=== PATIENT | female | born 1985 | race Caucasian/White ===

== ENCOUNTER 2019-06-26 18:38 | Emergency (ER) | payer BC ==
[2019-06-26 19:30] LABS: Urine Blood NEGATIVE (NEG); Urine Glucose NEGATIVE (NEG); Urine Protein NEGATIVE (NEG); Urine Specific Gravity 1.015 (1.005-1.030); Urine pH 6.5 (5.0-7.0)
[2019-06-26 19:52] LABS: Absolute Lymphocytes (CBC) 2.8 K/uL (0.7-4.9); Basophils % 0.1 % (0-1.3); Hematocrit 34.6 % (36.0-45.0); Lymphocytes % 24.4 % (15.3-44.8); MPV 8.5 fL (7.6-11.3); RBC Red Blood Cell Count 3.94 M/uL (3.86-4.86)
[2019-06-26 20:00] LABS: Potassium 3.6 mmol/L (3.5-5.1)
--- NOTE | 2019-06-26 20:12 | ER ---
Nurse's Notes [facility] Name: Dorothy Ledesma Age: 34 yrs Sex: Female : 1985 Arrival Date: 06/26/2019 Time: 18:42 Bed 17 Private MD: Diagnosis: 9 weeks gestation of ;Threatened Presentation: 06/26 18:51 Presenting complaint: Patient states: "I'm spotting, I'm 10 weeks and 3 days , aj1 I've been on clomid, I had a miscarriage on April 15. I called the nurse special education professor for Dr. Alva and she told me to come in" Patient reports that she has had cramping throughout her , but has had no new abdominal pain. Transition of care: patient was not received from another setting of care. Onset of symptoms was June 26, 2019. Risk Assessment: Do you want to hurt yourself or someone else? Patient reports no desire to harm self or others. Initial Sepsis Screen: Does the patient meet any 2 criteria? No. Patient's initial sepsis screen is negative. Does the patient have a suspected source of infection? No. Patient's initial sepsis screen is negative. Care prior to arrival: None. 18:51 Method Of Arrival: Ambulatory aj1 18:51 Acuity: KATHY 3 aj1 Triage Assessment: 18:54 General: Appears in no apparent distress. comfortable, Behavior is calm, cooperative, aj1 appropriate for age. Pain: Pain currently is 2 out of 10 on a pain scale. Neuro: Level of Consciousness is awake, alert, obeys commands. Cardiovascular: Patient's skin is warm and dry. Respiratory: Airway is patent Respiratory effort is even, unlabored, Respiratory pattern is regular, symmetrical. : Reports vaginal bleeding that is spotty. 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 - Social history:: Smoking status: Patient/guardian denies using tobacco. - Ebola Screening: : Patient denies travel to an Ebola-affected area in the 21 days before illness onset. Screenin:05 Abuse screen: Denies threats or abuse. Denies injuries from another. Nutritional cc3 screening: No deficits noted. Tuberculosis screening: No symptoms or risk factors identified. Fall Risk Ambulatory Aid- None/Bed Rest/Nurse Assist (0 pts). Gait- Normal/Bed Rest/Wheelchair (0 pts) Mental Status- Oriented to own ability (0 pts). Assessment: 19:05 Obstetrical Assessment: General assessment: awake and alert, Patient reports minimal cc3 vaginal spotting that started today. General: Appears in no apparent distress. comfortable, Behavior is calm, cooperative, appropriate for age. Pain: Denies pain. Neuro: Level of Consciousness is awake, alert, obeys commands, Oriented to person, place, time, situation, Appropriate for age. Cardiovascular: Denies chest pain, Heart tones S1 S2 present Capillary refill < 3 seconds in bilateral fingers Patient's skin is warm and dry. Respiratory: Airway is patent Respiratory effort is even, unlabored, Respiratory pattern is regular, symmetrical, Breath sounds are clear bilaterally. GI: Abdomen is round Bowel sounds present X 4 quads. Abd is soft and non tender X 4 quads. : No signs and/or symptoms were reported regarding the genitourinary system. EENT: No signs and/or symptoms were reported regarding the EENT system. Derm: Skin is intact, is healthy with good turgor, Skin is pink, warm \\T\\ dry. normal. Musculoskeletal: Circulation, motion, and sensation intact. Range of motion: intact in all extremities. 19:59 Reassessment: Ultrasound done bedside by the human resources technician, awaiting result. cc3 20:20 Reassessment: Patient appears in no apparent distress at this time. Patient and/or cc3 family updated on plan of care and expected duration. Pain level reassessed. Patient is alert, oriented x 3, equal unlabored respirations, skin warm/dry/pink. CADEN Bustillos discharged the patient home, no prescription given. IV cannula removed and patient left ER vitally stable and ambulatory with her mother. No valuables left in the patient's room. Patient denies pain at this time. Patient states feeling better. Patient states symptoms have improved. Vital Signs: 18:54 BP 138 / 74; Pulse 73; Resp 18; Temp 98.4; Pulse Ox 97% on R/A; Weight 83.01 kg (R); aj1 Height 5 ft. 9 in. (175.26 cm) (R); Pain 2/10; 19:30 BP 116 / 63; Pulse 65; Resp 16 S; Pulse Ox 99% on R/A; cc3 20:11 BP 124 / 63; Pulse 71; Resp 17 S; Pulse Ox 100% on R/A; Pain 0/10; cc3 18:54 Body Mass Index 27.02 (83.01 kg, 175.26 cm) aj1 ED Course: 18:42 Patient arrived in ED. mr 18:52 Triage completed. aj1 18:54 Arm band placed on Patient placed in an exam room. aj1 18:55 Henny Bustillos FNP-C is PHCP. kb 18:55 Daniele Corrales MD is Attending Physician. kb 19:03 Selena Moore is Primary Nurse. cc3 19:05 Patient has correct armband on for positive identification. Placed in gown. Bed in low cc3 position. Call light in reach. Side rails up X2. Pulse ox on. NIBP on. 19:15 Inserted saline lock: 20 gauge in left antecubital area, using aseptic technique. Blood cc3 collected. 20:03 US Transvaginal Ob In Process Unspecified. EDMS 20:04 Ultrasound completed. Patient tolerated well. Notified DIRECTOR INDUSTRIAL/PA henny. sg3 20:20 No provider procedures requiring assistance completed. IV discontinued, intact, cc3 bleeding controlled, No redness/swelling at site. Pressure dressing applied. 20:20 No provider procedures requiring assistance completed. cc3 Administered Medications: No medications were administered Outcome: 20:11 Discharge ordered by . kb 20:20 Discharged to home ambulatory, with family. cc3 20:20 Condition: stable 20:20 Discharge instructions given to patient, family, Instructed on discharge instructions, follow up and referral plans. Demonstrated understanding of instructions, follow-up care. 20:24 Patient left the ED. cc3 Signatures: Dispatcher [employer] EDUT Henny Bustillos FNP-C FNP-Ckb Johnson, Angela, RN RN aj1 Bee Manuel mr Taryn Galarza sg3 Selena Moore cc3
--- NOTE | 2019-06-26 20:12 | EDPHYS ---
Physician Documentation [facility] Name: Dorothy Ledesma Age: 34 yrs Sex: Female : 1985 Arrival Date: 06/26/2019 Time: 18:42 Bed 17 Private MD: ED Physician Daniele Corrales HPI: 06/26 19:39 This 34 yrs old Female presents to ER via Ambulatory with complaints of kb Vaginal Bleeding, + Preg <12wks. 19:39 The patient presents to the emergency department with vaginal bleeding, described as kb spotting. The estimated gestational age is 10 weeks. course: care: private OB physician, Dr. Alva, Leakage of Fluid: none appreciated, Ultrasound: the patient had an ultrasound, which was normal, Risk/complications: no obvious risks or complications are appreciated. Previous pregnancies: in previous pregnancies patient has had. Associated signs and symptoms: Pertinent positives: vaginal bleeding. The patient has not experienced similar symptoms in the past. The patient has been recently seen by a physician:. 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 States Dr Alva's nurse told her to come to the ER. Had normal US on Thursday. States this is her second round of clomid to conceive and she miscarried the first time. . 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 - Social history:: Smoking status: Patient/guardian denies using tobacco. - Ebola Screening: : Patient denies travel to an Ebola-affected area in the 21 days before illness onset. ROS: 19:38 Constitutional: Negative for fever, chills, and weight loss, ENT: Negative for injury, kb pain, and discharge, Neck: Negative for injury, pain, and swelling, Cardiovascular: Negative for chest pain, palpitations, and edema, Respiratory: Negative for shortness of breath, cough, wheezing, and pleuritic chest pain, Back: Negative for injury and pain, MS/Extremity: Negative for injury and deformity, Skin: Negative for injury, rash, and discoloration, Neuro: Negative for headache, weakness, numbness, tingling, and seizure. 19:38 Abdomen/GI: Positive for abdominal cramps. 19:38 : Positive for vaginal bleeding. Exam: 19:38 Constitutional: This is a well developed, well nourished patient who is awake, alert, kb and in no acute distress. Head/Face: Normocephalic, atraumatic. ENT: Nares patent. No nasal discharge, no septal abnormalities noted. Tympanic membranes are normal and external auditory canals are clear. Oropharynx with no redness, swelling, or masses, exudates, or evidence of obstruction, uvula midline. Mucous membranes moist. Neck: Trachea midline, no thyromegaly or masses palpated, and no cervical lymphadenopathy. Supple, full range of motion without nuchal rigidity, or vertebral point tenderness. No Meningismus. Chest/axilla: Normal chest wall appearance and motion. Nontender with no deformity. No lesions are appreciated. Cardiovascular: Regular rate and rhythm with a normal S1 and S2. No gallops, murmurs, or rubs. Normal PMI, no JVD. No pulse deficits. Respiratory: Lungs have equal breath sounds bilaterally, clear to auscultation and percussion. No rales, rhonchi or wheezes noted. No increased work of breathing, no retractions or nasal flaring. Abdomen/GI: Soft, non-tender, with normal bowel sounds. No distension or tympany. No guarding or rebound. No evidence of tenderness throughout. Back: No spinal tenderness. No costovertebral tenderness. Full range of motion. Skin: Warm, dry with normal turgor. Normal color with no rashes, no lesions, and no evidence of cellulitis. MS/ Extremity: Pulses equal, no cyanosis. Neurovascular intact. Full, normal range of motion. Neuro: Awake and alert, GCS 15, oriented to person, place, time, and situation. Cranial nerves II-XII grossly intact. Motor strength 5/5 in all extremities. Sensory grossly intact. Cerebellar exam normal. Normal gait. Vital Signs: 18:54 BP 138 / 74; Pulse 73; Resp 18; Temp 98.4; Pulse Ox 97% on R/A; Weight 83.01 kg (R); aj1 Height 5 ft. 9 in. (175.26 cm) (R); Pain 2/10; 19:30 BP 116 / 63; Pulse 65; Resp 16 S; Pulse Ox 99% on R/A; cc3 20:11 BP 124 / 63; Pulse 71; Resp 17 S; Pulse Ox 100% on R/A; Pain 0/10; cc3 18:54 Body Mass Index 27.02 (83.01 kg, 175.26 cm) aj1 MDM: 18:56 Patient medically screened. kb 19:38 Data reviewed: vital signs, nurses notes. Data interpreted: Pulse oximetry: on room air kb is 97 %. Interpretation: normal. 20:10 Counseling: I had a detailed discussion with the patient and/or guardian regarding: the kb historical points, exam findings, and any diagnostic results supporting the discharge/admit diagnosis, lab results, radiology results, the need for outpatient follow up, an OB/Gyne specialist, to return to the emergency department if symptoms worsen or persist or if there are any questions or concerns that arise at home. 06/26 18:55 Order name: Quantitative Hcg; Complete Time: 20:02 kb 06/26 18:55 Order name: Abo/rh Typing; Complete Time: 19:53 kb 06/26 18:55 Order name: Basic Metabolic Panel; Complete Time: 20:02 kb 06/26 18:55 Order name: CBC with Diff; Complete Time: 19:55 kb 06/26 19:28 Order name: Urine Dipstick--Ancillary (enter results); Complete Time: 19:35 mw2 06/26 19:28 Order name: Urine --Ancillary (enter results); Complete Time: 19:35 mw2 06/26 18:55 Order name: Urine Test (obtain specimen); Complete Time: 19:26 kb 06/26 18:55 Order name: IV Saline Lock; Complete Time: 19:19 kb 06/26 18:55 Order name: Labs collected and sent; Complete Time: 19:19 kb 06/26 18:55 Order name: NPO; Complete Time: 19:26 kb 06/26 18:55 Order name: Urine Dipstick-Ancillary (obtain specimen); Complete Time: 19:26 kb 06/26 19:05 Order name: US Transvaginal Ob; Complete Time: 20:24 kb Administered Medications: No medications were administered Disposition: 06/27 07:13 Co-signature as Attending Physician, Daniele Corrales MD. rn Disposition: 06/26/19 20:11 Discharged to Home. Impression: 9 weeks gestation of , Threatened . - Condition is Stable. - Discharge Instructions: Vaginal Bleeding During , First Trimester, First Trimester of , [id number], Subchorionic Hematoma, Threatened Miscarriage, [id number], Pelvic Rest. - Medication Reconciliation Form, Thank You Letter, Antibiotic Education, Prescription Opioid Use, Work release form form. - Follow up: Emergency Department; When: As needed; Reason: Worsening of condition. Follow up: Private Physician; When: 2 - 3 days; Reason: Recheck today's complaints, Continuance of care, Re-evaluation by your physician. Signatures: Dispatcher [employer] EDNY Henny Bustillos, FANTASMA-C HIGH SCHOOL COORDINATOR-Ckb Deyanira Valero RN RN aj1 Daniele Corrales MD MD rn Cordel, Charlene cc3 Corrections: (The following items were deleted from the chart) 06/26 20:24 20:11 06/26/2019 20:11 Discharged to Home. Impression: 9 weeks gestation of ; cc3 Threatened . Condition is Stable. Forms are Medication Reconciliation Form, Thank You Letter, Antibiotic Education, Prescription Opioid Use. Follow up: Emergency Department; When: As needed; Reason: Worsening of condition. Follow up: Private Physician; When: 2 - 3 days; Reason: Recheck today's complaints, Continuance of care, Re-evaluation by your physician. kb
--- NOTE | 2019-06-26 20:17 | RAD REPORT ---
EXAM DESCRIPTION: US - Transvaginal OB - 06/26/2019 8:03 pm CLINICAL HISTORY: VAGINAL BLEEDING COMPARISON: <Comparisons> FINDINGS: A single gestational sac is seen within the uterus. The shape of the sac is within normal limits for gestational age. Within the sac is a single pole with crown-rump length of 2.9 cm, c orrelating to estimated gestational age of 9 weeks 3 days. Estimated date of delivery is 01/26/2020. Heart rate is 167 BPM. 15 x 6 mm inferiorly located subchorionic bleed noted. The placenta is not yet developed due to early gestational age. The maternal adnexa and ovaries are within normal limits. Normal Doppler blood flow was demonstrated to both ovaries. IMPRESSION: Single live early intrauterine gestation with estimated gestational age of 9 weeks 3 day s, PAZ 01/26/2020. 15 x 6 mm inferiorly located subchorionic bleed.
[2019-06-26 20:32] VITALS: TEMP 98.4
[2019-06-26 20:34] VITALS: BP 124/63; O2SAT 100
== END 2019-06-26 20:24 | disposition home or self-care (01) ==
LOC: ER 18:38
DX: O20.0 Threatened abortion (principal); O99.341 Other mental disorders complicating pregnancy, first trimester; F41.8 Other specified anxiety disorders; Z79.82 Long term (current) use of aspirin; Z3A.09 9 weeks gestation of pregnancy
CPT/HCPCS: 36415; 76817; 80048; 81003; 81025; 84702; 85025; 86900; 86901; 99284

== ENCOUNTER 2019-07-31 12:24 | Emergency (ER) | payer BC ==
[2019-07-31 13:38] LABS: Urine Blood 2+ (NEG); Urine Glucose NEGATIVE (NEG); Urine Protein NEGATIVE (NEG); Urine Specific Gravity 1.015 (1.005-1.030); Urine pH 6.5 (5.0-7.0)
--- NOTE | 2019-07-31 14:07 | ER ---
Nurse's Notes [facility] Name: Dorothy Ledesma Age: 34 yrs Sex: Female : 1985 Arrival Date: 07/31/2019 Time: 12:25 Bed 13 Private MD: Tom Alva B Diagnosis: 15 weeks gestation of Presentation: 07/31 12:33 Presenting complaint: Patient states: "I'm 15 weeks , I was here a few weeks aj1 ago, I have a subchorionic hematoma, I was spotting the last time I was here, I'm spotting again today." Denies pain. Transition of care: patient was not received from another setting of care. Onset of symptoms was July 31, 2019. Risk Assessment: Do you want to hurt yourself or someone else? Patient reports no desire to harm self or others. Initial Sepsis Screen: Does the patient meet any 2 criteria? No. Patient's initial sepsis screen is negative. Does the patient have a suspected source of infection? No. Patient's initial sepsis screen is negative. Care prior to arrival: None. 12:33 Method Of Arrival: Ambulatory aj1 12:33 Acuity: KATHY 3 aj1 Triage Assessment: 12:38 General: Appears in no apparent distress. comfortable, Behavior is calm, cooperative, aj1 appropriate for age. Pain: Denies pain. Neuro: Level of Consciousness is awake, alert, obeys commands. Cardiovascular: Patient's skin is warm and dry. Respiratory: Airway is patent Respiratory effort is even, unlabored, Respiratory pattern is regular, symmetrical. : Reports vaginal bleeding that is spotty. 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 - Social history:: Smoking status: Patient/guardian denies using tobacco. - Ebola Screening: : Patient denies travel to an Ebola-affected area in the 21 days before illness onset. Screenin:39 Abuse screen: Denies threats or abuse. Nutritional screening: No deficits noted. rb1 Tuberculosis screening: No symptoms or risk factors identified. Fall Risk None identified. Assessment: 12:39 General: Appears in no apparent distress. comfortable, Behavior is calm, cooperative, rb1 Denies fever. Pain: Denies pain. Neuro: Level of Consciousness is awake, alert, obeys commands, Oriented to person, place, time, situation. Cardiovascular: Capillary refill < 3 seconds is brisk in bilateral fingers. Respiratory: Airway is patent Respiratory effort is even, unlabored, Respiratory pattern is regular, symmetrical. GI: No signs and/or symptoms were reported involving the gastrointestinal system. : Reports vaginal bleeding that is spotty. Derm: Skin is pink, warm \\T\\ dry. 13:38 Reassessment: Patient appears in no apparent distress at this time. No changes from rb1 previously documented assessment. Vital Signs: 12:38 BP 130 / 76; Pulse 66; Resp 18; Temp 97.5; Pulse Ox 100% on R/A; Weight 83.91 kg (R); aj1 Height 5 ft. 9 in. (175.26 cm) (R); Pain 0/10; 13:38 BP 103 / 57; Pulse 56; Resp 19; Pulse Ox 100% on R/A; rb1 12:38 Body Mass Index 27.32 (83.91 kg, 175.26 cm) aj1 13:38 Pt. was having her US done. rb1 ED Course: 12:25 Patient arrived in ED. as 12:25 Tom Alva MD is Private Physician. as 12:35 Triage completed. aj1 12:38 Arm band placed on Patient placed in an exam room. aj1 12:39 Henny Bustillos FNP-C is [facility]. kb 12:39 Patient has correct armband on for positive identification. Bed in low position. Call rb1 light in reach. Side rails up X 1. Pulse ox on. NIBP on. Warm blanket given. 12:40 Edinson Riley MD is Attending Physician. kb 12:49 Rajwinder Dewitt, RN is Primary Nurse. rb1 14:04 Ultrasound completed. Patient tolerated well. Notified SLICING MACHINE OPERATOR/PA henny. sg3 14:07 Tom Alva MD is Referral Physician. kb 14:08 US OB Limited In Process Unspecified. EDMS 14:19 No provider procedures requiring assistance completed. IV discontinued, intact, aj1 bleeding controlled, No redness/swelling at site. Pressure dressing applied. Administered Medications: No medications were administered Outcome: 14:07 Discharge ordered by MD. kb 14:19 Discharged to home ambulatory. aj1 14:19 Condition: good 14:19 Discharge instructions given to patient, Instructed on discharge instructions, follow up and referral plans. Demonstrated understanding of instructions, follow-up care. 14:19 Patient left the ED. aj1 Signatures: Dispatcher [employer] EDWA Henny Bustillos, TECHNOLOGY INTERNSHIP-C TECHNOLOGY INTERNSHIP-CkDeyanira Shepard, RN RN aj1 Trish Crane Rebecca, RN RN rb1 Taryn Galarza3
--- NOTE | 2019-07-31 14:08 | EDPHYS ---
Physician Documentation [facility] Name: Dorothy Ledesma Age: 34 yrs Sex: Female : 1985 Arrival Date: 07/31/2019 Time: 12:25 Bed 13 Private MD: Tom Alva B ED Physician Edinson Riley HPI: 07/31 13:34 This 34 yrs old Female presents to ER via Ambulatory with complaints of kb Vaginal Bleeding - 15 wks preg. 13:35 The patient presents to the emergency department with vaginal bleeding, described as kb spotting. The estimated gestational age is 15 weeks. course: care: private OB physician, Dr. Alva. Previous pregnancies: in previous pregnancies patient has had. Associated signs and symptoms: Pertinent positives: vaginal bleeding, Pertinent negatives: abdominal pain. The patient has experienced similar episodes in the past. The patient has been recently seen by a physician:. Pt reports she has had some spotting today, but believes it was because her and her had intercourse last night. States she called the waste collection driver nurse and was told to come get checked out anyway. 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 - Social history:: Smoking status: Patient/guardian denies using tobacco. - Ebola Screening: : Patient denies travel to an Ebola-affected area in the 21 days before illness onset. ROS: 13:35 Constitutional: Negative for fever, chills, and weight loss, Cardiovascular: Negative kb for chest pain, palpitations, and edema, Respiratory: Negative for shortness of breath, cough, wheezing, and pleuritic chest pain, Abdomen/GI: Negative for abdominal pain, nausea, vomiting, diarrhea, and constipation, Back: Negative for injury and pain, MS/Extremity: Negative for injury and deformity, Skin: Negative for injury, rash, and discoloration, Neuro: Negative for headache, weakness, numbness, tingling, and seizure. 13:35 : Positive for vaginal bleeding. Exam: 13:35 Constitutional: This is a well developed, well nourished patient who is awake, alert, kb and in no acute distress. Head/Face: Normocephalic, atraumatic. Chest/axilla: Normal chest wall appearance and motion. Nontender with no deformity. No lesions are appreciated. Cardiovascular: Regular rate and rhythm with a normal S1 and S2. No gallops, murmurs, or rubs. Normal PMI, no JVD. No pulse deficits. Respiratory: Lungs have equal breath sounds bilaterally, clear to auscultation and percussion. No rales, rhonchi or wheezes noted. No increased work of breathing, no retractions or nasal flaring. Abdomen/GI: Soft, non-tender, with normal bowel sounds. No distension or tympany. No guarding or rebound. No evidence of tenderness throughout. Back: No spinal tenderness. No costovertebral tenderness. Full range of motion. Skin: Warm, dry with normal turgor. Normal color with no rashes, no lesions, and no evidence of cellulitis. MS/ Extremity: Pulses equal, no cyanosis. Neurovascular intact. Full, normal range of motion. Neuro: Awake and alert, GCS 15, oriented to person, place, time, and situation. Cranial nerves II-XII grossly intact. Motor strength 5/5 in all extremities. Sensory grossly intact. Cerebellar exam normal. Normal gait. Vital Signs: 12:38 BP 130 / 76; Pulse 66; Resp 18; Temp 97.5; Pulse Ox 100% on R/A; Weight 83.91 kg (R); aj1 Height 5 ft. 9 in. (175.26 cm) (R); Pain 0/10; 13:38 BP 103 / 57; Pulse 56; Resp 19; Pulse Ox 100% on R/A; rb1 12:38 Body Mass Index 27.32 (83.91 kg, 175.26 cm) aj1 13:38 Pt. was having her US done. rb1 MDM: 12:40 Patient medically screened. kb 13:35 Data reviewed: vital signs, nurses notes. Data interpreted: Pulse oximetry: on room air kb is 100 %. Interpretation: normal. Counseling: I had a detailed discussion with the patient and/or guardian regarding: the historical points, exam findings, and any diagnostic results supporting the discharge/admit diagnosis, lab results, radiology results, the need for outpatient follow up, a family practitioner, to return to the emergency department if symptoms worsen or persist or if there are any questions or concerns that arise at home. 07/31 12:41 Order name: Quantitative Hcg; Complete Time: 14:06 kb 07/31 12:54 Order name: Urine Dipstick--Ancillary (enter results); Complete Time: 13:42 eb 07/31 12:42 Order name: Urine Dipstick-Ancillary (obtain specimen); Complete Time: 13:57 kb 07/31 12:49 Order name: US OB Limited kb Administered Medications: No medications were administered Disposition: 17:46 Co-signature as Attending Physician, Edinson Riley MD Did not see or evaluate the ps1 patient. Signing the chart for administrative purposes. Not an endorsement of care provided. . Disposition: 07/31/19 14:07 Discharged to Home. Impression: 15 weeks gestation of . - Condition is Stable. - Discharge Instructions: Second Trimester of , [id number]. - Medication Reconciliation Form, Thank You Letter, Antibiotic Education, Prescription Opioid Use form. - Follow up: Emergency Department; When: As needed; Reason: Worsening of condition. Follow up: Tom Alva MD; When: 2 - 3 days; Reason: Recheck today's complaints, Continuance of care, Re-evaluation by your physician. Signatures: Dispatcher [employer] [facility] Henny Bustillos, [employer] FRAME FITTER-Deyanira Glynn, RN RN aj1 Edinson Riley MD MD ps1 Corrections: (The following items were deleted from the chart) 12:53 12:42 Transvaginal Ob+US.RAD.BRZ ordered. [facility] 13:36 13:34 The patient presents with vaginal bleeding that is spotting, kb kb 14:19 14:07 07/31/2019 14:07 Discharged to Home. Impression: 15 weeks gestation of . aj1 Condition is Stable. Forms are Medication Reconciliation Form, Thank You Letter, Antibiotic Education, Prescription Opioid Use. Follow up: Emergency Department; When: As needed; Reason: Worsening of condition. Follow up: Tom lAva; When: 2 - 3 days; Reason: Recheck today's complaints, Continuance of care, Re-evaluation by your physician. kb
[2019-07-31 14:42] VITALS: TEMP 97.5; O2SAT 100
[2019-07-31 14:43] VITALS: BP 103/57
--- NOTE | 2019-07-31 15:41 | RAD REPORT ---
EXAM DESCRIPTION: US - OB Limited - 07/31/2019 2:04 pm CLINICAL HISTORY: VAGINAL BLEEDING age. COMPARISON: Transvaginal OB dated 06/26/2019 FINDINGS: A limited obstetrical ultrasound was requested and performed. A single cephalic presenting gestation is identified. Heart rate normal. The placenta is grade 0, posterior in location. No evidence of ovarian torsion.
== END 2019-07-31 14:19 | disposition home or self-care (01) ==
LOC: ER 12:24
DX: O26.892 Other specified pregnancy related conditions, second trimester (principal)
CPT/HCPCS: 36415; 76815; 81003; 84702; 99283

== ENCOUNTER 2020-01-13 05:01 | Inpatient (IN) | payer BC, OTHER ==
--- NOTE | 2020-01-12 09:36 | PREOPHP ---
Date of Admission: 01/13/2020 History Of Present Illness: This is a -jzek-avp female, 2, para 0, been seen in co njunction with Dr. Sood, high-manager risk at [facility]. He has suggested th at we deliver the patient this Thursday. Patient is 1.5 cm, 30% effaced, vertex is -2 station. We had planned on using Cytotec for cervical ripening and labor induction on Thursday. Patient now states th at she wants a section. Pros and cons of this thoroughly discussed including infection; blo od loss; anesthetic complications; injury to bladder, bowel, ureter; postoperative complications; nguyễn ts in legs; pneumonia; and patient knows that she has future , so it can increase the chance for complications, but she wishes to proceed with . Says she does not want a long drawn out labor. We will accede to her wishes and make preparations for delivery. Family History: Maternal grandmother, maternal uncle with leukemia, otherwise negative. Allergies: SHE HAS NO ALLERGIES. Past Surgical History: She has had breast reduction surgery. Medications: She is on vitamins and iron. Social History: She does not smoke. She has been seen, as we said, in conjunction with Dr. Sood. She has been having fairly frequent h eadaches during the and has a history of psychological problems, although no suicidal tende ncies or any other type of problems of that nature. She has uterine fibroid and borderline caity wth restriction as per Dr. Sood. We will proceed with delivery on Thursday morning. Physical Examination: HEENT: Clear. Pupils are equal, round, reactive to light and accommodation. Conjunctivae well perf used. No oral, lingual, or buccal lesions. Chest and Lungs: Clear. Heart: Without murmurs, thrills, heaves, or rubs. Breasts: Without masses on previous visit. Abdomen: Term size. Extremities: Clear. Pelvic: As stated. We will proceed with primary section, high-risk , patient's request. CHI/JADYN Voice ID: [id number]
[~2020-01-13 05:01] MED LIST: CEFAZOLIN 2 GM in NA CHLORIDE 0.9% 100 ML IVPB SCH; FAMOTIDINE 20 MG/2 ML VIAL IV ONE; METOCLOPRAMIDE 10 MG/2mL INJ IV SCH; NA CIT/CITRIC AC 30 ML ORAL UDC PO ONE; Ringers Lactate 1,000 ML IV PRN; Ringers Lactate 1,000 ML IV SCH
[2020-01-13 06:23] VITALS: BMI 32.1
[2020-01-13] MEDS ORDERED: ACETAMINOPHEN 500 MG TAB PO PRN (10:11)
[2020-01-13] MEDS ORDERED: DOCUSATE NA/SENNA CONC 1 TAB PO PRN (10:11)
[2020-01-13] MEDS ORDERED: BISACODYL 10 MG RECTAL SUPP PR PRN (10:11)
[2020-01-13] MEDS ORDERED: Oxycodone HCl/Acetaminophen 1 TAB TAB PO PRN (10:14)
[2020-01-13] MEDS ORDERED: DIPHENHYDRAMINE 50 MG/ML VIAL IV ONE (12:40)
[2020-01-13] MEDS: KETOROLAC 30 MG/ML INJ IV PRN ×2 (15:11→22:52)
[2020-01-13] MEDS ORDERED: CEFAZOLIN/SWI 2gm 2 GM/20 ML SYR IV ONE (15:50)
[2020-01-13] MEDS ORDERED: CEFAZOLIN 2 GM in NA CHLORIDE 0.9% 100 ML IVPB ONE (15:50)
[2020-01-13] MEDS ORDERED: OXYTOCIN/LR 20 UNIT/1,000 ML BAG IV SCH (18:00)
[2020-01-13] MEDS ORDERED: D5LR 1,000 ML with OXYTOCIN 20 UNIT IV SCH ×4 (18:00)
--- NOTE | 2020-01-13 19:28 | OP ---
Surgeon: Tom Alva MD Cycling Instructor: Maury Diamond MD Anesthesiologist: Dr. Cho. Indications: A 34-year-old 2, para 0, at 39 weeks, followed antepartum in conjunction with Luis Angel Sood, high-aviation technical systems specialist at [facility], noted to have uterine fibroids and b caroline lagging behind in growth, probably SGA. It was recommended by Dr. Sood that we deliver her tod ay. Full preoperative counseling. Patient chose instead of vaginal delivery attempt. Full discussion about options. Possible complications including infection, blood loss, anesthetic compli cations, injury to bladder, bowel, ureter, postoperative complications, clots in legs, pneumonia. Michael jeffers knows fully well this does not constitute all the possible problems that could occur during or following surgery. Anesthesia: Spinal block anesthesia. Description Of Procedure: After time out, prepping and draping was performed. A Pfannenstiel incisi on was created. Incision was carried to the fascia. The fascia was incised and incision carried tra nsversely bilaterally. In the left rectus muscle, there was an arterial bleeder, which was fulgurate d numerous times and then hemostasis was obtained. Anterior fascial plane was developed with both bl unt and sharp dissection. The underlying rectus muscle was . Peritoneum entered bluntly. Low transverse uterine incision created after bladder flap had been developed. A 5-pound 15-ounce ma le infant, loose nuchal cord x1, and Apgars 7 or 8 at 1 minute and 9 at 5 minutes. Baby slightly cya notic in the room after surgery, but is breathing well and oxygen saturation is 98%. Nonetheless, I think Dr. Mac should be evaluating the baby and she will be notified. The placenta was removed m anually. Uterus cleared of clot and blood and exteriorized. Cervical os dilated with ring clamps. Uterus was closed with a running locking stitch of 1 chromic followed by an imbricating stitch of 1 c hromic followed by 3-4 [id number] stitches in the left angle for complete hemostasis. Estimated blood loss 800 mL. On the posterior aspect of the uterus was what appeared to be possibly decidual reaction or endometriosis. Several small bleeding areas were fulgurated. Gutters were cleared of cl ot and blood. Patient was noted to have a prominent sacral promontory. Uterus was replaced into the peritoneal cavity. Gutters were cleared of clot and blood. Incision line checked again, no further bleeding. Rectus muscles reapproximated with 2 stitches of 0 Vicryl interrupted. Then, the fascia was closed with 1 PDS, running from either angle to the midline. Subcutaneous tissue closed with 2-0 plain. [place] applied. Patient had been given 2 g of Ancef prior to the procedure. Tolerated all procedures well. Transferred back to her room in good condition. Final Diagnoses: Term intrauterine at 39 weeks, small for gestational age baby, uterine fi broid, possible endometriosis, primary section, spinal block anesthesia. CHI/JADYN Voice ID: [id number] Report ID: [id number]
[2020-01-13] MEDS ORDERED: DIPHENHYDRAMINE 50 MG/ML VIAL ONE (22:26)
[2020-01-13] MEDS: DIPHENHYDRAMINE 50 MG/ML VIAL IV PRN (22:30)
[2020-01-14] MEDS: DIPHENHYDRAMINE 50 MG/ML VIAL IV PRN (00:30)
[2020-01-14] MEDS: Oxycodone HCl/Acetaminophen 1 TAB TAB PO PRN ×2 (12:30→16:30)
[2020-01-14] MEDS: IBUPROFEN 600 MG TAB PO PRN (20:35)
[2020-01-15] MEDS: IBUPROFEN 600 MG TAB PO PRN (03:50)
[2020-01-15 07:26] VITALS: BP 147/75; TEMP 97.8
[2020-01-15] MEDS: Oxycodone HCl/Acetaminophen 1 TAB TAB PO PRN (08:28)
--- NOTE | 2020-01-16 10:34 | PN ---
No complaints or problems this morning. Incision looks good. She will call the office tomorrow. Se elizabet patel later next week for staple removal. CHI/JADYN Voice ID: [id number] Report ID: [id number]
--- NOTE | 2020-01-16 10:34 | DS ---
Date of Discharge: 01/15/2020 This is a 34-year-old primigravida, 39 weeks, seeing antepartum in conjunction with Dr. Sood, high manager credit risk, [facility] who recommend delivery at 39 weeks, suspected SGA, uter ine fibroids and psychological evaluation as well. Patient has delivered of a 5 pounds, 15-ounce mal e Apgars 7 or 8 at one minute and 9 at five minutes. Estimated blood loss 800 cc. Findings on the p osterior aspect of the uterus compatible with either decidual reaction or endometriosis. This has be en discussed with the patient. Ancef for prophylaxis pre and postop. Patient is ambulating, output is good. We will discontinue her Perrin catheter and IV this morning. Her incision looks excellent. She did have small amount of oozing from the right side, but that is apparently stopped. It looks f ine at this point. She will be dismissed tomorrow morning assuming no problems in the interim. To r eturn to my office next week for staple removal. She has had her Tdap immunization. No post spinal block problems. Full post discharge instructions given. Final Diagnoses: Term intrauterine at 39 weeks, suspected small for gestational age, uteri ne fibroids, primary section, spinal block anesthesia. ERINC/JADYN Voice ID: [id number] Report ID: [id number]
--- NOTE | 2020-01-16 10:38 | PN ---
. Vital signs are stable. Lochia has been normal. H and H were expected change. We will discontinue Perrin and IV. Patient is very hungry. She has ambulated already. Full postoperative t alk given. If she continues to do well, we will send her home tomorrow morning. No post spinal bloc k problems. CHI/JADYN Voice ID: [id number] Report ID: [id number]
== END 2020-01-15 08:45 | disposition home or self-care (01) | DRG 788 ==
LOC: 2ND-WC 05:01
PROVIDERS: ADMIT Specialist; ATTEND Specialist
PROC: 10907ZC Drainage of Amniotic Fluid, Therapeutic from Products of Conception, Via Natural or Artificial Opening (ICD-10-PCS; 2020-01-13)
PROC: 10D00Z1 Extraction of Products of Conception, Low, Open Approach (ICD-10-PCS; principal; 2020-01-13 07:30)
DX: O34.13 Maternal care for benign tumor of corpus uteri, third trimester (principal); D25.9 Leiomyoma of uterus, unspecified; Z3A.39 39 weeks gestation of pregnancy; Z37.0 Single live birth
CPT/HCPCS: 36415; 85014; 88307; J0690; J1200; J2590; J2765; J7120; J7121

== ENCOUNTER 2021-02-06 05:32 | Inpatient (IN) | payer OTHER ==
[2021-02-04 11:02] LABS: Urine Appearance CLOUDY (Clear); Urine Bilirubin NEGATIVE (Negative); Urine Blood NEGATIVE (Negative); Urine Color YELLOW (Yellow); Urine Glucose NEGATIVE (Negative); Urine Protein NEGATIVE (Negative); Urine Urobilinogen 0.2 mg/dL (0.2-1.0)
[2021-02-04 11:03] LABS: Urine Microscopic Reflex ORDER UMIC
[2021-02-04 11:07] LABS: Absolute Lymphocytes (CBC) 2.1 K/uL (0.7-4.9); Basophils % 0.5 % (0-1.3); Hematocrit 36.1 % (36.0-45.0); Lymphocytes % 21.7 % (15.3-44.8); MPV 8.6 fL (7.6-11.3); RBC Red Blood Cell Count 4.27 M/uL (3.86-4.86)
[2021-02-04 11:08] LABS: Urine Bacteria 20-50 /HPF (<20); Urine RBC NONE SEEN /HPF (NONE SEEN)
[2021-02-04 22:35] LABS: RPR (Rapid Plasma Reagin) NON-REACT (NON-REACT)
[2021-02-06] MEDS ORDERED: Ringers Lactate 1,000 ML IV PRN (05:44)
[2021-02-06 05:45] VITALS: BMI 30.5
[2021-02-06] MEDS ORDERED: NA CIT/CITRIC AC 30 ML ORAL UDC PO ONE (05:48)
[2021-02-06] MEDS ORDERED: METOCLOPRAMIDE 10 MG/2mL INJ IV SCH (06:00)
[2021-02-06] MEDS ORDERED: CEFAZOLIN 2 GM in NA CHLORIDE 0.9% 100 ML IVPB SCH ×2 (06:00→16:00)
[2021-02-06] MEDS ORDERED: Ringers Lactate 1,000 ML IV SCH (06:00)
[2021-02-06 06:02] VITALS: O2SAT 98
[2021-02-06] MEDS ORDERED: FAMOTIDINE 20 MG/2 ML VIAL IV ONE (06:33)
[2021-02-06] MEDS ORDERED: CEFAZOLIN/SWI 2gm 2 GM/20 ML SYR ONE (06:34)
[2021-02-06] MEDS ORDERED: METHYLERGONOVINE 0.2MG/ML AMP IM ONE (06:59)
[2021-02-06] MEDS ORDERED: CARBOPROST TROME 250 MCG/ML IM ONE (06:59)
[2021-02-06] MEDS ORDERED: LIDOCAINE 1% MPF 5 ML VIAL ONE (07:15)
[2021-02-06] MEDS ORDERED: MORPHINE SULFATE/PF 1 MG/ML (10 ML AMP) ONE (07:15)
[2021-02-06] MEDS ORDERED: OXYTOCIN 10 UNIT/ML ML IV ONE ×2 (07:15→08:14)
[2021-02-06] MEDS ORDERED: NS 0.9% VIAL 10 ML ONE (07:15)
[2021-02-06] MEDS ORDERED: EPHEDRINE SULF 50 MG/ML VIAL ONE ×2 (07:15→08:01)
[2021-02-06] MEDS ORDERED: BUPIVACAINE 0.75% (PF) 2 ML SP ONE (07:39)
[2021-02-06] MEDS ORDERED: ONDANSETRON 4 MG/2 ML VIAL ONE (07:39)
[2021-02-06] MEDS ORDERED: GLYCOPYRROLATE 0.2 MG/ML SYR ONE (08:00)
[2021-02-06] MEDS ORDERED: Phenylephrine HCl 10 MG/ML 1 ML VIAL ONE (08:09)
[2021-02-06] MEDS ORDERED: KETOROLAC 30 MG/ML INJ IV PRN (08:35)
[2021-02-06] MEDS ORDERED: ACETAMINOPHEN 500 MG TAB PO PRN ×2 (08:35)
[2021-02-06] MEDS ORDERED: DIPHENHYDRAMINE 25 MG TAB/CAP PO PRN (08:35)
[2021-02-06] MEDS ORDERED: ONDANSETRON 4 MG (ODT) TAB PO PRN (08:35)
[2021-02-06] MEDS ORDERED: Oxycodone HCl/Acetaminophen 1 TAB TAB PO PRN (08:35)
[2021-02-06] MEDS ORDERED: KETOROLAC 30 MG/ML INJ IM PRN (08:35)
[2021-02-06] MEDS ORDERED: BISACODYL 10 MG RECTAL SUPP PR PRN (08:35)
[2021-02-06] MEDS ORDERED: IBUPROFEN 200 MG TAB PO PRN (08:35)
[2021-02-06] MEDS ORDERED: ONDANSETRON 4 MG/2 ML VIAL IV PRN (08:35)
[2021-02-06] MEDS ORDERED: D5LR 1,000 ML with OXYTOCIN 20 UNIT IV SCH ×2 (09:00)
[2021-02-06] MEDS ORDERED: FAMOTIDINE 20 MG/2 ML VIAL IV SCH (09:00)
[2021-02-06] MEDS ORDERED: OXYTOCIN/LR 20 UNIT/1,000 ML BAG IV SCH (09:00)
[2021-02-06] MEDS: METHYLERGONOVINE 0.2 MG TAB PO PRN ×4 (09:35→21:00)
[2021-02-06] MEDS ORDERED: METHYLERGONOVINE 0.2 MG TAB PO ONE (09:43)
--- NOTE | 2021-02-06 11:33 | OP ---
Surgeon: oTm Alva MD Routing Machine Operator: Dr. Martin. Anesthesiologist: Dr. Guevara. Indication: Dorothy Ledesma is a 35-year-old female, 3, para 1, at 39 weeks for repeat section. Infection; blood loss; anesthetic complications; injury to bladder, bowel, ureter; postoperative complications; clots in legs; and pneumonia discussed. The patient knows fully well this does not constitute all the possible problems that could occur during or following surgery. Anesthesia: Spinal block. Procedure In Detail: Prepping and draping were performed and then time-out. A Pfannenstiel incision was created over the previous incision site. The incision was carried to the fascia. The fascia was incised and incision was carried transversely bilaterally. Anterior and posterior fascial planes were developed with both blunt and sharp dissection. Defect was seen in the perineum. This was opened and extended. A low transverse uterine incision was created. An 8- pound male infant was delivered with assistance of kiwi vacuum, Apgars 9 and 9. Noted to have a small nancy on the right side of the head. We put a Steri-Strip on that. The patient informed. Cord blood was obtained. Placenta removed manually. Uterus cleared of clot and blood and exteriorized. Mild hypotonus. 0.2 mg of Methergine IM as well as IV drip Pitocin. Estimated blood loss during procedure 900 mL. Cervical os dilated with ring clamp. Uterus closed with a running lock stitch of 1 chromic followed by imbricating stitch of 1 chromic. Uterus replaced in the peritoneal cavity, gutters clear of clot and blood. The suture line was reinspected. No further bleeding. Two interrupted sutures of 0 Vicryl were placed to reapproximate the rectus muscles. Then, 1 PDS used to close the fascia running from either angle to the midline. Subcutaneous tissue closed with 2-0 plain. Noted to be quite a few small little bleeders. These were all fulgurated. Da used for the skin. The patient had been given 2 g of Ancef prior to the procedure. Tolerated all procedures well. Transferred back to her room in good condition. Final Diagnoses: Term intrauterine , repeat section, spinal block anesthesia, mild uterine hypotonus, kiwi-vacuum assisted delivery. NBC/MODL Voice ID: [id number] Report ID: [id number] MTDLuis Angel
[2021-02-06 12:01] LABS: HIV AG/AB 4TH GEN Non-reactive (Non-reactive)
[2021-02-06] MEDS ORDERED: CEFAZOLIN/SWI 2gm 2 GM/20 ML SYR IV SCH (16:00)
[2021-02-06] MEDS ORDERED: CEFAZOLIN/SWI 2gm 2 GM/20 ML SYR IVP SCH (17:00)
[2021-02-07 04:38] LABS: HBsAG Nonreactive (Nonreactive)
[2021-02-07] MEDS ORDERED: MAGNESIUM HYDROXIDE 8% 30 ML PO PRN (08:35)
[2021-02-07] MEDS: Oxycodone HCl/Acetaminophen 1 TAB TAB PO PRN ×2 (10:30→11:56)
[2021-02-07 11:54] VITALS: BP 105/60; TEMP 97.6
--- NOTE | 2021-02-07 21:40 | DS ---
Date of Discharge: 02/07/2021 Postoperatively, the patient is doing quite well. Output is good. Vital signs are normal. H and H with expected change. No post spinal block problems. The patient has expressed the desire to possib ly go home this afternoon. If she is ambulating, voiding, and has no problems, we will let her go ho me any time after 2 p.m. if major gifts director dismisses the baby, which should occur. She has had her Tda p immunization already. We will send her home with tramadol for analgesia. She has been only taking Motrin so far. She knows that all these goes through the breast milk and she will use them judiciou sly. Final Diagnoses: Repeat section at 39 weeks, mild uterine hypotonus, dismissed later today or if the patient first tomorrow morning, to return to my office next week for followup. CHI/JADYN Voice ID: [id number] Report ID: [id number]
--- NOTE | 2021-02-12 14:45 | PREOPHP ---
Date of Admission: 02/06/2021 History Of Present Illness: 35-year-old, 3, para 1, AB 1, at 39 weeks, on Thursday for repe at section. Infection; blood loss; anesthetic complications; injury to bladder, bowel, uret er; postoperative complications; clots in legs; and pneumonia discussed. The patient knows fully wel l this does not constitute all the possible problems that could occur during or following surgery. Family History: Paternal grandmother with hypertension. Maternal grandmother, maternal uncle with c ancers unrelated to present situation. Cousin with leukemia. Past Surgical History: The patient has had breast reduction surgery and a previous . Allergies: SHE HAS NO ALLERGIES. Social History: She does not smoke. Medications: She is taking no medicines prior to admission other than vitamins and iron. Physical Examination: HEENT: Clear. Pupils equal, round, reactive to light and accommodation. Conjunctivae well perfused . No oral, lingual, or buccal lesions. Chest and Lungs: Clear. Heart: Without murmurs, thrills, heaves, rubs. Breasts: Without masses on previous visits. Abdomen: Term size. Baby is vertex. Extremities: Clear without edema, cyanosis, or clubbing. Assessment And Plan: The patient is 1 cm. Baby is applied, but no significant dilation or effacemen t at this point. We will proceed with repeat section. CHI/JADYN Voice ID: [id number]
== END 2021-02-07 14:05 | disposition home or self-care (01) | DRG 788 ==
LOC: 2ND-WC 05:32
PROVIDERS: ADMIT Specialist; ATTEND Specialist
PROC: 10907ZC Drainage of Amniotic Fluid, Therapeutic from Products of Conception, Via Natural or Artificial Opening (ICD-10-PCS; 2021-02-06)
PROC: 10D00Z1 Extraction of Products of Conception, Low, Open Approach (ICD-10-PCS; principal; 2021-02-06 07:30)
DX: O34.211 Maternal care for low transverse scar from previous cesarean delivery (principal); O62.4 Hypertonic, incoordinate, and prolonged uterine contractions; Z3A.39 39 weeks gestation of pregnancy; Z37.0 Single live birth; Z20.822 Contact with and (suspected) exposure to COVID-19
CPT/HCPCS: 36415; 81003; 81015; 85014; 85025; 86592; 86900; 86901; 87086; 87088; 87340; 87389; 88307; J0690; J2210; J2370; J2405; J2590; J2765; J7120; J7121; U0003

== ENCOUNTER 2021-05-18 12:35 | Emergency (ER) | payer OTHER ==
[2021-05-18 13:23] LABS: Urine Blood Negative (Negative); Urine Glucose Negative (Negative); Urine Protein Negative (Negative); Urine Specific Gravity 1.015 (1.005-1.030)
[2021-05-18 13:50] LABS: Urine Specific Gravity/Preg 1.015 (1.005-1.030)
--- NOTE | 2021-05-18 14:23 | RAD REPORT ---
EXAM DESCRIPTION: RAD - Lumbar Spine 3 Views - 05/18/2021 2:04 pm CLINICAL HISTORY: LOWER BACK PAIN, lifting injury COMPARISON: No comparisons FINDINGS: A three-view lumbar spine examination was performed. Lumbar bodies are normal in height and alignment. No fracture or acute bony process seen. No disc spa ce narrowing. No other significant findings. No pars defects identified. IMPRESSION: Negative Lumbar Spine examination.
[2021-05-18] MEDS ORDERED: KETOROLAC 30 MG/ML INJ ONE (14:31)
[2021-05-18] MEDS ORDERED: CYCLOBENZAPRINE 10 MG TAB ONE (14:32)
[2021-05-18] MEDS ORDERED: LIDOCAINE 4% PATCH ONE (14:39)
--- NOTE | 2021-05-18 15:18 | EDPHYS ---
Physician Documentation [facility] Name: Dorothy Ledesma Age: 36 yrs Sex: Female : 1985 Arrival Date: 05/18/2021 Time: 12:36 Bed 17 Private MD: ED Physician Aristides New HPI: 05/18 13:22 This 36 yrs old Female presents to ER via Wheelchair with complaints of Low pm1 Back Pain, Back Injury. 13:22 The patient presents with pain that is acute. The symptoms are located in the lumbar pm1 area and right low back. The pain does not radiate. The problem was sustained when lifting 24 pack soda can and twisting. Onset: The symptoms/episode began/occurred today. Modifying factors: The patient symptoms are alleviated by specific position, the patient symptoms are aggravated by movement. Associated signs and symptoms: Pertinent negatives: dysuria, fever, numbness, tingling, weakness. Severity of symptoms: in the emergency department the symptoms are unchanged. The patient has not experienced similar symptoms in the past. The patient has not recently seen a physician. 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 - Social history:: Smoking status: Patient reports the use of cigarette tobacco products, denies chronic smoking, but will smoke occasionally. ROS: 13:22 Constitutional: Negative for fever, chills, and weight loss, Cardiovascular: Negative pm1 for chest pain, palpitations, and edema, Respiratory: Negative for shortness of breath, cough, wheezing, and pleuritic chest pain, Abdomen/GI: Negative for abdominal pain, nausea, vomiting, diarrhea, and constipation. 13:22 MS/Extremity: Negative for injury and deformity, Skin: Negative for injury, rash, and discoloration. 13:22 Neuro: Negative for headache, weakness, numbness, tingling, and seizure. 13:22 Back: Positive for of the lumbar area and right low back, Pain. 13:22 All other systems are negative. Exam: 13:22 Constitutional: This is a well developed, well nourished patient who is awake, alert, pm1 and in no acute distress. Head/Face: Normocephalic, atraumatic. 13:22 Skin: Warm, dry with normal turgor. Normal color with no rashes, no lesions, and no evidence of cellulitis. MS/ Extremity: Pulses equal, no cyanosis. Neurovascular intact. Full, normal range of motion. 13:22 Cardiovascular: Exam negative for acute changes, Rate: normal, Rhythm: regular, Pulses: no pulse deficits are appreciated. 13:22 Respiratory: Exam negative for acute changes, respiratory distress, shortness of breath. 13:22 Back: pain, that is mild, of the lumbar area and right low back, normal spinal alignment noted. 13:22 Neuro: Exam negative for acute changes, Orientation: is normal, Mentation: is normal, Motor: is normal, moves all fours, strength is 5/5 in the Dorsi and plantar flexion of bilateral great toe. Vital Signs: 12:47 BP 112 / 72; Pulse 58; Resp 18; Pulse Ox 98% on R/A; tr6 12:59 Pulse 96; Resp 16; Pulse Ox 100% on R/A; Weight 79.38 kg; Height 5 ft. 9 in. (175.26 iw cm); Pain 8/10; 13:00 BP 120 / 59; Pulse 58; Resp 18; Pulse Ox 100% on R/A; tr6 15:00 BP 117 / 65; Pulse 62; Resp 17; Temp 98; Pulse Ox 100% ; bp 12:59 Body Mass Index 25.84 (79.38 kg, 175.26 cm) iw MDM: 13:02 Patient medically screened. pm1 13:07 ED course: Concern for possible . Will test urine prior to administration of pm1 pain medication and imaging. 15:16 ED course: Patient reports significant improvement in pain with medications given in ER.pm1 15:16 Data reviewed: vital signs. Data interpreted: Pulse oximetry: on room air is 100 %. pm1 Interpretation: normal. Counseling: I had a detailed discussion with the patient and/or guardian regarding: the historical points, exam findings, and any diagnostic results supporting the discharge/admit diagnosis, lab results, radiology results, the need for outpatient follow up, to return to the emergency department if symptoms worsen or persist or if there are any questions or concerns that arise at home. 05/18 13:22 Order name: Urine Dipstick-Ancillary; Complete Time: 13:43 EDMS 05/18 13:24 Order name: Urine --Ancillary (enter results) eb 05/18 13:24 Order name: Urine --Ancillary; Complete Time: 14:31 EDMS 05/18 13:46 Order name: Lumbar Spine (3 Views) XRAY; Complete Time: 14:31 pm1 05/18 13:06 Order name: Urine Test (obtain specimen); Complete Time: 13:25 pm1 05/18 13:06 Order name: Urine Dipstick-Ancillary (obtain specimen); Complete Time: 13:25 pm1 Administered Medications: 14:10 Drug: Flexeril (cyclobenzaprine) 10 mg Route: PO; tr6 15:23 Follow up: Response: No adverse reaction bp 14:10 Drug: Ketorolac 60 mg Route: IM; Site: right deltoid; tr6 15:23 Follow up: Response: No adverse reaction bp 14:18 Drug: Lidoderm Patch 5 % (700 mg/patch) 1 patches Route: Topical; Site: affected area; tr6 Disposition: 17:04 Co-signature as Attending Physician, Aristides New MD I agree with the assessment and kdr plan of care. Disposition Summary: 05/18/21 15:17 Discharge Ordered Location: Home pm1 Problem: new pm1 Symptoms: have improved pm1 Condition: Stable pm1 Diagnosis - Low back pain pm1 Followup: pm1 - With: Emergency Department - When: As needed - Reason: Worsening of condition Followup: pm1 - With: Private Physician - When: 2 - 3 days - Reason: Recheck today's complaints, Continuance of care, Re-evaluation by your physician Discharge Instructions: - Discharge Summary Sheet pm1 - Acute Back Pain, Adult pm1 - Muscle Strain pm1 - Back Injury Prevention, [id number] pm1 Forms: - Medication Reconciliation Form pm1 - Thank You Letter pm1 - Antibiotic Education pm1 - Prescription Opioid Use pm1 Prescriptions: - Lidoderm 5 % Topical adhesive patch,medicated - apply 1 patch by TRANSDERMAL route once daily As needed 12 hours on and 12 pm1 hours off in a 24-hour period; 10 patch; Refills: 0, Product Selection Permitted - Naprosyn 500 mg Oral Tablet - take 1 tablet by ORAL route every 12 hours As needed take with food; 30 tablet; pm1 Refills: 0, Product Selection Permitted - Cyclobenzaprine 10 mg Oral Tablet - take 1 tablet by ORAL route every 8 hours As needed; 30 tablet; Refills: 0, pm1 Product Selection Permitted Signatures: Dispatcher [employer] Aristides Salmeron MD MD [facility] Megan Machuca RN RN iw Eladio Morales NP CHIEF BUSINESS OFFICER pm1 Grace Desouza RN RN tr6 Louis Koenig RN bp Corrections: (The following items were deleted from the chart) 13:01 13:00 Allergies: Aspirin; [facility]
--- NOTE | 2021-05-18 15:18 | ER ---
Nurse's Notes [facility] Name: Dorothy Ledesma Age: 36 yrs Sex: Female : 1985 Arrival Date: 05/18/2021 Time: 12:36 Bed 17 Private MD: Diagnosis: Low back pain Presentation: 05/18 12:59 Chief complaint: Patient states: pt picked up a large case of sodas injured her mid iw lower back, no previous injury to back. Coronavirus screen: At this time, the client does not indicate any symptoms associated with coronavirus-19. Ebola Screen: Patient negative for fever greater than or equal to 101.5 degrees Fahrenheit, and additional compatible Ebola Virus Disease symptoms Patient denies exposure to infectious person. Patient denies travel to an Ebola-affected area in the 21 days before illness onset. No symptoms or risks identified at this time. Initial Sepsis Screen: Does the patient meet any 2 criteria? No. Patient's initial sepsis screen is negative. Does the patient have a suspected source of infection? No. Patient's initial sepsis screen is negative. Risk Assessment: Do you want to hurt yourself or someone else? Patient reports no desire to harm self or others. Onset of symptoms was May 18, 2021. 12:59 Method Of Arrival: Wheelchair iw 12:59 Acuity: KATHY 3 iw Triage Assessment: 13:00 General: Appears distressed, uncomfortable, Behavior is cooperative, appropriate for bp age, anxious. Pain: Complains of pain in back. EENT: No deficits noted. Neuro: No deficits noted. Cardiovascular: No deficits noted. Respiratory: No deficits noted. GI: No signs and/or symptoms were reported involving the gastrointestinal system. : No signs and/or symptoms were reported regarding the genitourinary system. Derm: No deficits noted. Musculoskeletal: Reports pain in back. 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 - Social history:: Smoking status: Patient reports the use of cigarette tobacco products, denies chronic smoking, but will smoke occasionally. Screenin:00 Abuse screen: Denies threats or abuse. Denies injuries from another. Nutritional bp screening: No deficits noted. Tuberculosis screening: No symptoms or risk factors identified. Fall Risk None identified. Assessment: 13:00 General: SEE TRIAGE NOTE. bp 14:30 Reassessment: No changes from previously documented assessment. Patient and/or family bp updated on plan of care and expected duration. Pain level reassessed. Patient is alert, oriented x 3, equal unlabored respirations, skin warm/dry/pink. 15:23 Reassessment: PT D/C HOME AMBULATORY, DX WITH LUMBAR STRAIN. bp Vital Signs: 12:47 BP 112 / 72; Pulse 58; Resp 18; Pulse Ox 98% on R/A; tr6 12:59 Pulse 96; Resp 16; Pulse Ox 100% on R/A; Weight 79.38 kg; Height 5 ft. 9 in. (175.26 iw cm); Pain 8/10; 13:00 BP 120 / 59; Pulse 58; Resp 18; Pulse Ox 100% on R/A; tr6 15:00 BP 117 / 65; Pulse 62; Resp 17; Temp 98; Pulse Ox 100% ; bp 12:59 Body Mass Index 25.84 (79.38 kg, 175.26 cm) iw ED Course: 12:36 Patient arrived in ED. am2 12:46 Eladio Morales NP is PHCP. pm1 12:46 Aristides New MD is Attending Physician. pm1 12:49 Louis Koenig, CRISTIAN is Primary Nurse. bp 13:00 Triage completed. iw 13:00 Patient has correct armband on for positive identification. Bed in low position. Call bp light in reach. Side rails up X2. 13:01 Arm band placed on. iw 13:25 Urine --Ancillary (enter results) Sent. bp 14:04 Lumbar Spine (3 Views) XRAY In Process Unspecified. EDMS 15:00 No provider procedures requiring assistance completed. Patient did not have IV access bp during this emergency room visit. Administered Medications: 14:10 Drug: Flexeril (cyclobenzaprine) 10 mg Route: PO; tr6 15:23 Follow up: Response: No adverse reaction bp 14:10 Drug: Ketorolac 60 mg Route: IM; Site: right deltoid; tr6 15:23 Follow up: Response: No adverse reaction bp 14:18 Drug: Lidoderm Patch 5 % (700 mg/patch) 1 patches Route: Topical; Site: affected area; tr6 Outcome: 15:00 Discharged to home ambulatory. bp 15:00 Condition: stable 15:00 Discharge instructions given to patient, Instructed on discharge instructions, follow up and referral plans. medication usage, Demonstrated understanding of instructions, follow-up care, medications, Prescriptions given X 3. 15:17 Discharge ordered by . pm1 15:29 Patient left the ED. bp Signatures: Dispatcher [employer] EDMS Megan Machuca RN RN iw Eladio Morales NP ELECTRONIC PARTS DESIGNER pm1 Delia Lewis am2 Louis Koenig RN RN bp Grace Desouza RN RN tr6 Corrections: (The following items were deleted from the chart) 13:01 13:00 Allergies: Aspirin; iw rose
[2021-05-18 15:37] VITALS: O2SAT 100
[2021-05-18 15:39] VITALS: BP 117/65; TEMP 98
== END 2021-05-18 15:29 | disposition home or self-care (01) ==
LOC: ER 12:35
DX: M54.5 Low back pain (principal); F17.210 Nicotine dependence, cigarettes, uncomplicated; F41.8 Other specified anxiety disorders
CPT/HCPCS: 72100; 81003; 81025; 96372; 99284